=== PATIENT | male | born 1940 | race African-American/Black ===

== ENCOUNTER 2017-03-26 22:03 | Observation (INO) | payer MEDICARE, BC ==
--- NOTE | ~2017-03-26 | DS ---
Unit #: [id number] #: [id number] Patient: LADI RASCON [id number] [address] [place], [place] [address] [id number] I MR#: [id number] NAME: LADI RASCON. ROOM: 564 Age: 76 Sex: M Admission Date: 03/27/2017 : 1940 Discharge Date: 03/28/2017 Attending Physician: Francisco Ace M.D. Primary Care Physician: Wandy Rachel M.D. DISCHARGE SUMMARY PRINCIPAL DIAGNOSES 1. Vasovagal syncope. 2. Hypertension, controlled. 3. Diabetes mellitus type 2, non-insulin requiring, with associated gastroparesis and peripheral neuropathy. 4. Benign prostatic hypertrophy. 5. Allergic rhinitis. 6. Hyperlipidemia. 7. Gastroesophageal reflux disease. 8. Mild protein malnutrition. 9. Normocytic anemia. CONSULTANTS None. DIAGNOSTIC STUDIES IMAGING: CT scan of the head without contrast on March 27, 2017 with mild generalized atrophy. No other acute findings. Bilateral carotid ultrasound on March 27, 2017 with less than 50% stenosis bilaterally involving the internal carotid arteries. Chest x-ray on March 26, 2017 with cardiomegaly and elevated right hemidiaphragm. Bibasilar atelectasis noted. CARDIOVASCULAR: Two-dimensional echocardiogram with ejection fraction of 70%, asymmetrical septal hypertrophy, impaired left ventricular relaxation, moderately dilated right ventricle. No evidence of aortic stenosis or aortic regurgitation. CLINICAL HISTORY AND HOSPITAL COURSE Mr. Rascon is a really nice 76-year-old male who presented to the emergency department after passing out at home. I will note his fainting episode occurred after coughing very hard and subsequently developing nausea and emesis. In the emergency department he underwent CT scan of the head, which was unremarkable. He was placed in observation for further evaluation. Since hospitalization, the patient has had no further episodes of syncope. He has been maintained on telemetry in normal sinus rhythm throughout hospitalization. Blood work has also been unremarkable, and the patient has not had any complaints of chest pain. Given circumstances of his syncopal episode, I suspect that this was vasovagal in origin, i.e., he had a posttussive and/or vomiting episode with stimulation of vagus nerve Unit #: [id number] #: [id number] Patient: LADI RASCON and subsequent syncope. I have discussed this with the patient, and expresses understanding. Patient has had significant hypertension since hospitalization with blood pressures running in the 150s to 170s systolic and mid 80s to 100s diastolic. I am going to add a low dose of lisinopril, and this can be followed up by his primary care physician, Dr. Wandy Rachel, upon his followup appointment. DISCHARGE CONDITION Stable. DISCHARGE STATUS Discharge to home. DISCHARGE MEDICATIONS 1. Flomax 0.4 mg b.i.d. 2. Neurontin 300 mg b.i.d. 3. Metformin 500 mg b.i.d. 4. Angi 180 mg daily. 5. Procardia XL 30 mg daily. 6. Simvastatin 20 mg at bedtime. 7. Reglan 5 mg p.o. t.i.d. with meals. 8. Protonix 40 mg b.i.d. 9. Lisinopril 20 mg daily. DISCHARGE INSTRUCTIONS Patient was instructed to follow a heart healthy, constant carb diet. He can increase his activity as tolerated. FOLLOW-UP Patient has a followup appointment with his primary care provider, Dr. Wandy Rachel, on April 04, 2017. I have discussed with him he needs followup basic metabolic panel at that time to ensure creatinine is stable on lisinopril and followup of blood pressure. Dictated by... Kusum Arroyo M.D. NEERU/lesa TD: 03/29/2017 08:33 JOB #: [id number] DISCHARGE SUMMARY Page 1 of 1 X Kusum Arroyo MD X DISCHARGE SUMMARY
--- NOTE | ~2017-03-26 | HP ---
Unit #: [id number] #: [id number] Patient: LADI RASCON [id number] [address] [place], [place] [address] [id number] I MR#: [id number] NAME: LADI RASCON ROOM: 564 Age: 76 Sex: M Admission Date: 03/27/2017 : 1940 Attending Physician: Francisco Ace M.D. Primary Care Physician: Wandy Rachel M.D. HISTORY AND PHYSICAL CHIEF COMPLAINT Passed out. HISTORY OF PRESENT ILLNESS The patient is a 76-year-old male who presented to [facility] Emergency Department after he passed out. The patient states that he has been in his normal state of health. He states that he was half asleep lying in his chair when he suddenly felt the urge to cough. He states that he began coughing, and then it became uncontrollable, and he suddenly felt the urge to vomit. He states that he continued to cough and running to the bathroom trying to make it to the toilet within which to vomit. He states that apparently he did not make it as he woke up on the floor with his vomitus on the floor. The patient states that he had a similar episode some years ago, and there is indeed dictation from November 2007 where he apparently had some bouts of coughing followed by loss of consciousness. PAST MEDICAL HISTORY 1. Diabetes. 2. Hypertension. 3. Hyperlipidemia. PAST SURGICAL HISTORY None. SOCIAL HISTORY No tobacco, alcohol, or illicit drug use. Patient lives at home with his . FAMILY HISTORY Reviewed and noncontributory in this 72-year-old male. ALLERGIES Shellfish. No other medical allergies. HOME MEDICATIONS 1. Glucophage 500 mg p.o. b.i.d. 2. Flomax 0.4 mg p.o. b.i.d. 3. Neurontin 300 mg p.o. b.i.d. 4. Protonix 40 mg p.o. b.i.d. 5. Simvastatin 20 mg p.o. daily. 6. Metoclopramide 5 mg p.o. t.i.d. with meals. 7. Procardia XL 30 mg p.o. daily. 8. Angi 180 mg p.o. daily. Unit #: [id number] #: [id number] Patient: LADI RASCON REVIEW OF SYSTEMS A 10-point review of systems was obtained and negative except as per History of Present Illness. PHYSICAL EXAMINATION VITAL SIGNS: Temperature 97.9, pulse 88, and blood pressure 160/83. GENERAL: A 76-year-old male in no acute distress who appears stated age. HEENT: Pupils equally round. Extraocular movements intact. Mucous membranes are dry. NECK: Supple. No JVD, no lymphadenopathy. CARDIAC: Regular rate and rhythm. No murmurs, gallops, or rubs. LUNGS: Clear to auscultation bilaterally. ABDOMEN: Nontender and nondistended. Positive bowel sounds. EXTREMITIES: No clubbing, cyanosis, or edema. They are warm and dry. PSYCHIATRIC: Alert and oriented x3. Affect is appropriate. NEUROLOGIC: Cranial nerves II-XII intact grossly. Patient moves all extremities equally and with purpose. SKIN: No rashes, bruises, or ulcers. MUSCULOSKELETAL: No muscle or joint pain. No muscle or joint swelling. DIAGNOSTIC STUDIES LABORATORY: Repeat chemistries at 7 a.m. on the morning of admission are essentially normal. CBC is normal. IMAGING: CT of the head shows no acute findings. Chest x-ray shows no acute findings. Carotid ultrasound shows less than 50% stenosis bilaterally. CARDIOLOGY: A 2D echo has been performed and report is pending. ASSESSMENT AND PLAN 1. Posttussive syncope. Based on the patient's description, this seems very consistent with an episode of posttussive syncope. The patient has been admitted to a telemetry floor, and unless his monitor shows some significant abnormality or unless his 2D echocardiogram should do the same, the patient should be discharged in the morning. The order has been written. 2. Type 2 diabetes. The patient has been started on sliding scale insulin. 3. Prophylaxis. No deep venous thrombosis prophylaxis needed as he is in observation and will likely be in the hospital significantly less than 48 hours. 1. Dictated by Natalia Mcgraw/karlene TD: 03/27/2017 21:10 JOB #: [id number] Unit #: [id number] #: [id number] Patient: LADI RASCON HISTORY AND PHYSICAL Page 1 of 1 X Liam Lowry MD X HISTORY AND PHYSICAL
--- NOTE | ~2017-03-26 | CR72 ---
[facility] A Service of [facility] RADIOLOGY TEXT RESULTS PATIENT: LADI RASCON LOCATION: [facility] 564- : 40 UNIT #: [id number] AGE: [address]: Francisco Ace MD SEX: M ORDER DR: [id number] [facility] [address] [place], [place] [address] [id number] I MR#: [id number] Acc #: [id number] NAME: LADI RASCON. : 1940 SEX: M STUDY DATE/TIME: 03/26/2017 23:57 UNIT: [facility] ROOM: [facility] STUDY DESCRIPTION: CR Chest Single View Portable Attending Physician: Francisco Ace M.D. Ordering Physician: Nelson Byrne M.D. Primary Care Physician: Wandy Rachel M.D. MEDICAL IMAGING REPORT This report is preliminary unless electronic signature is present EXAM Portable chest, 03/26 23:57 INDICATIONS Shortness of air and wheezing today. Syncopal episode today with fall. FINDINGS AP portable chest compared with 12/30/2015. The heart is enlarged. Lung volumes are quite low. There is elevation of the right hemidiaphragm, and there is atelectasis in both lung bases. There is some atherosclerotic disease in the aorta. No pneumothorax. IMPRESSION Cardiomegaly with low-volume inspiration and an elevated right hemidiaphragm. There is bibasilar atelectasis, right greater than left. Dictated by... Santi Arthur Jr., M.D. THIS IS AN ELECTRONICALLY VERIFIED REPORT Santi Arthur Jr., M.D. at 03/27/2017 9:22 PM FRANK/saul TD: 03/27/2017 17:09 JOB #: [id number] MEDICAL IMAGING REPORT Page 1 of 1 COPY
--- NOTE | ~2017-03-26 | CT71 ---
[facility] A Service of [facility] RADIOLOGY TEXT RESULTS PATIENT: LADI RASCON LOCATION: [facility] 564-01 : 40 UNIT #: [id number] AGE: [address]: Francisco Ace MD SEX: M ORDER DR: [id number] [facility] [address] [place], [place] [address] [id number] I MR#: [id number] Acc #: [id number] NAME: LADI RASCON. : 1940 SEX: M STUDY DATE/TIME: 03/27/2017 00:56 UNIT: [facility] ROOM: [facility] STUDY DESCRIPTION: CT Head Wo Contrast Attending Physician: Francisco Ace M.D. Ordering Physician: Nelson Byrne M.D. Primary Care Physician: Wandy Rachel M.D. MEDICAL IMAGING REPORT This report is preliminary unless electronic signature is present EXAM Head CT, 03/27 at 00:56 INDICATIONS Syncopal episode 03/26/2017 at about 10:00 p.m. Patient fell and hit head posteriorly. FINDINGS Axial images were obtained from the base to the vertex without contrast. Comparison made with 11/19/2007. This CT exam was performed with one or more of the following radiation dose reduction techniques: Automatic exposure control, adjustment of mA and/or kV according to patient size, and iterative reconstruction. Ventricular size and configuration are normal. There is a very mild degree of generalized age-appropriate atrophy. There is no acute infarct or hemorrhage. There are no masses. Atherosclerotic calcifications are noted in the carotid siphons. There are no skull fractures. IMPRESSION Mild generalized atrophy, otherwise negative head CT. Dictated by... Santi Arthur Jr., M.D. THIS IS AN ELECTRONICALLY VERIFIED REPORT Santi Arthur Jr., M.D. at 03/27/2017 9:23 PM FRANK/saul TD: 03/27/2017 18:00 JOB #: [id number] [facility] A Service of [facility] RADIOLOGY TEXT RESULTS PATIENT: LADI RASCON LOCATION: [facility] 564-01 : 40 UNIT #: [id number] AGE: [address]: Francisco Ace MD SEX: M ORDER DR: MEDICAL IMAGING REPORT Page 1 of 1 COPY
--- NOTE | ~2017-03-26 | US37 ---
[facility] A Service of [facility] RADIOLOGY TEXT RESULTS PATIENT: LADI RASCON LOCATION: [facility] 564-01 : 40 UNIT #: [id number] AGE: [address]: Francisco Ace MD SEX: M ORDER DR: [id number] [facility] [address] [place], [place] [address] [id number] I MR#: [id number] Acc #: [id number] NAME: LADI RASCON. : 1940 SEX: M STUDY DATE/TIME: 03/27/2017 8:13 UNIT: [facility] ROOM: [facility] STUDY DESCRIPTION: US Carotid W/Doppler Bilateral Attending Physician: Francisco Ace M.D. Ordering Physician: Darien Govea M.D. Primary Care Physician: Wandy Rachel M.D. MEDICAL IMAGING REPORT This report is preliminary unless electronic signature is present EXAM Bilateral carotid duplex ultrasound INDICATIONS Carotid stenosis, diabetes, hypertension, high cholesterol; presents to the ER with headache, dizziness, syncope and lightheadedness. Patient has not had a previous endarterectomy. TECHNIQUE Sullivan-scale, color Doppler and spectral Doppler waveform imaging of the carotid and vertebral arteries was performed and compared with 06/04/2015. FINDINGS Peak systolic velocity of the right common carotid artery is 104 cm/sec. Peak systolic velocity of the right internal carotid artery ranges from 52-61 cm/sec. Peak systolic velocity of the right external carotid artery is 116 cm/sec. Antegrade flow was demonstrated within the right vertebral artery. Peak systolic velocity of the left common carotid artery is 75 cm/sec. Peak systolic velocity of the left internal carotid artery ranges from 63-96 cm/sec. Peak systolic velocity of the left external carotid artery is 144 cm/sec. Antegrade flow in the left vertebral artery. Plaque is noted within the right common carotid artery and carotid bulb and in the left carotid bulb. IMPRESSION Based on NASCET criteria, there is mild (less than 50%) stenoses involving both internal carotid arteries. Dictated by... Suhas Ellis M.D. [facility] A Service of [facility] RADIOLOGY TEXT RESULTS PATIENT: LADI RASCON LOCATION: [facility]4- : 40 UNIT #: [id number] AGE: [address]: Francisco Ace MD SEX: M ORDER DR: THIS IS AN ELECTRONICALLY VERIFIED REPORT Suhas Ellis M.D. at 03/28/2017 2:19 PM ARS/saul TD: 03/27/2017 23:03 JOB #: [id number] MEDICAL IMAGING REPORT Page 1 of 1 COPY
--- NOTE | ~2017-03-26 | EKG ---
PATIENT: LADI RASCON UNIT #: [id number] Ventricular Rate: 90 BPM Atrial Rate: 90 BPM P-R Interval: 152 ms QRS Duration: 86 ms Q-T Interval: 382 ms QTC Calculation(Bezet): 467 ms P [place]: 30 degrees Calculated R [place]: -22 degrees Calculated T [place]: 42 degrees Diagnosis Line: Normal sinus rhythm Diagnosis Line: Nonspecific T wave abnormality Diagnosis Line: Prolonged QT Diagnosis Line: Abnormal ECG Diagnosis Line: No previous ECGs available Diagnosis Line: Confirmed by LYUBOV RIVERS MD ([id number]) on Diagnosis Line: 03/28/2017 8:36:28 AM INTERPRETING MD: SILVESTRE OSULLIVAN
[~2017-03-26 22:03] MED LIST: ADALAT CC PO; ADVAIR 5001 DISK W/D PO; ASPIRIN PO; AUGMENTIN PO; CENTRUM SILVER PO; COMBIVENT INH14.7 GM INH; DETROL LA PO; FLOMAX0.4 MG PO; KEPPRA750 MG PO; NASALIDE25 ML; NEXIUM PO; PROCARDIA XL PO; VITAMIN C PO
[2017-03-26 23:01] LABS: BASOPHIL# 0.1 X10e3 (0-0.3); BASOPHIL% 1.8 % (0-2.5); EOSINOPHIL# 0.2 X10e3 (0-0.7); HEMOGLOBIN 13.2 gm/dL (13.0-16.0); LYMPHOCYTE# 1.5 X10e3 (1.0-3.5); LYMPHOCYTE% 31.9 % (17.0-45.0); MEAN CELL VOLUME 90.4 FL (83-96); MEAN CORPUSCULAR HEMOGLOBIN 29.2 PG (28-34); MEAN CORPUSCULAR HGB CONC 32.3 g/dL (30-36); MEAN PLATELET VOLUME 8.2 FL (6.5-11.5); MONOCYTE# 0.7 X10e3 (0-1.0); MONOCYTE% 15.3 % (3.0-12.0); NEUTROPHIL# 2.1 X10e3 (1.5-7.1); PLATELET COUNT 233 X10e3 (140-420); RED BLOOD COUNT 4.53 X10e (3.90-5.60); RED CELL DISTRIBUTION WIDTH 13.9 % (11.0-15.5); WHITE BLOOD COUNT 4.6 X10e3 (4.0-10.5)
[2017-03-26 23:05] LABS: DIFF IND NO
[2017-03-26 23:09] LABS: POC - CKMB 2.2 ng/mL (0.0-7.9); POC - TROPONIN <0.05 ng/mL (<=0.05)
[2017-03-26 23:28] LABS: CALCIUM SERUM 8.7 mg/dL (8.4-10.2); GLOM FILT RATE Estimated 84.4 mL/min (>60); POTASSIUM 4.1 mmol/L (3.5-5.1)
[2017-03-27] MEDS ORDERED: FLOMAX0.4 M1 PO (01:35)
[2017-03-27] MEDS ORDERED: GLUCOPHAGE500 MG PO (01:35)
[2017-03-27] MEDS ORDERED: GABAPENTIN300 MG PO (01:36)
[2017-03-27] MEDS ORDERED: PROTONIX PO (01:36)
[2017-03-27] MEDS ORDERED: SIMVASTATIN20 MG PO (01:36)
[2017-03-27] MEDS ORDERED: PROCARDIA XL30 MG (01:37)
[2017-03-27] MEDS ORDERED: METOCLOPRAMIDE H5 MG PO (01:37)
[2017-03-27] MEDS ORDERED: PROCARDIA XL30 MG PO (01:37)
[2017-03-27] MEDS ORDERED: ALLEGRA ALLERG180 MG PO (01:38)
[2017-03-27 01:47] LABS: POC - CKMB 2.1 ng/mL (0.0-7.9); POC - TROPONIN <0.05 ng/mL (<=0.05)
[2017-03-27 07:06] LABS: BASOPHIL# 0.1 X10e3 (0-0.3); BASOPHIL% 1.3 % (0-2.5); EOSINOPHIL# 0.3 X10e3 (0-0.7); EOSINOPHIL% 4.7 % (0.0-7.0); HEMATOCRIT 40.4 % (38.0-50.0); HEMOGLOBIN 13.1 gm/dL (13.0-16.0); LYMPHOCYTE# 1.6 X10e3 (1.0-3.5); LYMPHOCYTE% 29.4 % (17.0-45.0); MEAN CELL VOLUME 89.4 FL (83-96); MEAN CORPUSCULAR HEMOGLOBIN 28.9 PG (28-34); MEAN CORPUSCULAR HGB CONC 32.4 g/dL (30-36); MEAN PLATELET VOLUME 8.1 FL (6.5-11.5); MONOCYTE# 0.9 X10e3 (0-1.0); MONOCYTE% 16.5 % (3.0-12.0); NEUTROPHIL# 2.6 X10e3 (1.5-7.1); NEUTROPHIL% 48.1 % (40-75); PLATELET COUNT 223 X10e3 (140-420); RED BLOOD COUNT 4.51 X10e (3.90-5.60); RED CELL DISTRIBUTION WIDTH 13.7 % (11.0-15.5); WHITE BLOOD COUNT 5.5 X10e3 (4.0-10.5)
[2017-03-27 07:07] LABS: DIFF IND NO
[2017-03-27 07:32] LABS: ALBUMIN SERUM 3.9 g/dL (3.5-5.0); BILIRUBIN,TOTAL 0.3 mg/dL (0.2-2.0); BUN/CREATININE RATIO 17.77; CALCIUM SERUM 8.7 mg/dL (8.4-10.2); CREATININE SERUM 0.9 mg/dL (0.6-1.4); GLOM FILT RATE Estimated 95.8 mL/min (>60); POTASSIUM 3.9 mmol/L (3.5-5.1); PROTEIN TOTAL SERUM 6.4 g/dL (6.0-8.3)
[2017-03-28 05:20] LABS: BASOPHIL# 0.1 X10e3 (0-0.3); BASOPHIL% 1.4 % (0-2.5); EOSINOPHIL# 0.3 X10e3 (0-0.7); EOSINOPHIL% 5.7 % (0.0-7.0); HEMATOCRIT 38.7 % (38.0-50.0); HEMOGLOBIN 12.9 gm/dL (13.0-16.0); LYMPHOCYTE# 1.3 X10e3 (1.0-3.5); LYMPHOCYTE% 26.1 % (17.0-45.0); MEAN CELL VOLUME 89.2 FL (83-96); MEAN CORPUSCULAR HEMOGLOBIN 29.8 PG (28-34); MEAN CORPUSCULAR HGB CONC 33.4 g/dL (30-36); MEAN PLATELET VOLUME 7.8 FL (6.5-11.5); MONOCYTE# 0.8 X10e3 (0-1.0); MONOCYTE% 16.3 % (3.0-12.0); NEUTROPHIL# 2.4 X10e3 (1.5-7.1); NEUTROPHIL% 50.5 % (40-75); PLATELET COUNT 214 X10e3 (140-420); RED BLOOD COUNT 4.34 X10e (3.90-5.60); RED CELL DISTRIBUTION WIDTH 13.7 % (11.0-15.5); WHITE BLOOD COUNT 4.9 X10e3 (4.0-10.5)
[2017-03-28 05:45] LABS: ALBUMIN SERUM 3.4 g/dL (3.5-5.0); BILIRUBIN,TOTAL 0.6 mg/dL (0.2-2.0); CALCIUM SERUM 8.6 mg/dL (8.4-10.2); DIFF IND NO; GLOM FILT RATE Estimated 84.4 mL/min (>60); POTASSIUM 4.2 mmol/L (3.5-5.1)
[2017-03-28] MEDS ORDERED: ZESTRIL10 MG PO (10:41)
== END 2017-03-28 10:59 | disposition home or self-care (01) ==
LOC: CED 22:03 → CEDOF 03-27 01:39 → C5C 03-27 02:11 → CEDOF 03-27 02:11 → CED 03-27 02:11 → C5C 03-27 14:01 → CEDOF 03-27 14:01 → C5C 03-28 10:59
PROVIDERS: Emergency Medicine; Internal Medicine
DX: R55 Syncope and collapse (principal); I10 Essential (primary) hypertension; G31.89 Other specified degenerative diseases of nervous system; I65.23 Occlusion and stenosis of bilateral carotid arteries; I51.7 Cardiomegaly; J98.6 Disorders of diaphragm; J98.11 Atelectasis; I35.8 Other nonrheumatic aortic valve disorders; E11.43 Type 2 diabetes mellitus with diabetic autonomic (poly)neuropathy; K31.84 Gastroparesis; E11.42 Type 2 diabetes mellitus with diabetic polyneuropathy; Z79.84 Long term (current) use of oral hypoglycemic drugs; N40.0 Benign prostatic hyperplasia without lower urinary tract symptoms; E78.5 Hyperlipidemia, unspecified; K21.9 Gastro-esophageal reflux disease without esophagitis; J30.9 Allergic rhinitis, unspecified; E46 Unspecified protein-calorie malnutrition; D64.9 Anemia, unspecified; Z79.899 Other long term (current) drug therapy; Z91.013 Allergy to seafood
CPT/HCPCS: 36415; 70450; 71010; 80048; 80053; 82553; 82947; 84443; 84484; 85025; 93005; 93306; 93880; 94640; 94760; 99285; G0378; J1815